=== PATIENT | female | born 1990 | race Caucasian/White ===

== ENCOUNTER → 2018-12-10 | Outpatient (CLI) | payer SELFPAY ==
[~2018-12-10] MED LIST: IOHEXOL 350 MG/ML 100 ML (OMNIPAQUE 350) VIAL IV ONE; METR500T PO; NITR100C PO; NS 100 ML (IVPB) BAG IV ONE; PREN-93 PO; RECEIVED CONTRAST (Hold Metformin) IV SCH
--- NOTE | 2018-12-10 14:35 | Diagnostic Imaging Report ---
PROCEDURE: CT abdomen and pelvis with contrast. TECHNIQUE: Multiple contiguous axial images were obtained through the abdomen and pelvis after administration of intravenous contrast. INDICATION: Low abdominal pain. COMPARISON: There are no prior studies available for comparison. FINDINGS: The images through the pelvis show that there is a well-circumscribed 4.1 x 4.6 cm area of low density in the right adnexa. Most likely, this is a cyst arising from the right ovary. If further evaluation of this finding is desired, then ultrasound would be recommended. There is no clear evidence for a cyst arising from the left ovary and the uterus itself is generally unremarkable. The urinary bladder is grossly unremarkable. The appendix was visualized and is not abnormally thickened. There is no distortion of the periappendiceal fat to suggest acute appendicitis. The liver is not enlarged. There is no focal mass involving the liver. However, there do appear to be several serpiginous vessels in the dome of the liver. This could represent developmental variant. The possibility that there is an underlying vascular abnormality in this region should still be considered. I would recommend that a Doppler examination of the liver be performed for further evaluation. The spleen, pancreas, adrenals, kidneys, gallbladder, aorta, and inferior vena cava show no sign of an acute abnormality. The stomach is not well distended and consequently difficult to assess. The lung bases are clear. The bone windows show no evidence for fracture or for destructive lesion. IMPRESSION: 1. The 4.1 x 4.6 cm rounded area of low density in the right adnexa is most likely a cyst arising from the right ovary. Ultrasound would be recommended to better characterize this finding. 2. The serpiginous vessels in the dome of the liver may be developmental variant. It would be less likely that there is an underlying vascular abnormality. Doppler ultrasound exam of the liver would be recommended for further study. 3. There is no acute abnormality of the the abdomen or pelvis noted, otherwise. Dictated by: Dictated on workstation # [id number]
== END ==
LOC: RAD 11:43
PROVIDERS: ATTEND Nurse Practitioner Family
DX: N83.8 Other noninflammatory disorders of ovary, fallopian tube and broad ligament (principal); N92.6 Irregular menstruation, unspecified
CPT/HCPCS: 74177

== ENCOUNTER 2021-10-24 13:02 | Outpatient (RCR) | payer SELFPAY ==
[2021-10-17 12:02] LABS: BASOPHILS % (AUTO) 1 % (0-10); EOSINOPHILS # (AUTO) 0.2 10^3/uL (0.0-0.3); EOSINOPHILS % (AUTO) 3 % (0-10); HEMATOCRIT 37 % (35-52); HEMOGLOBIN 10.5 g/dL (11.5-16.0); LYMPHOCYTES # (AUTO) 1.7 10^3/uL (1.0-4.0); LYMPHOCYTES % (AUTO) 32 % (12-44); MEAN CORPUSCULAR HEMOGLOBIN 20 pg (25-34); MEAN CORPUSCULAR HGB CONC 29 g/dL (32-36); MEAN CORPUSCULAR VOLUME 70 fL (80-99); MEAN PLATELET VOLUME 9.3 fL (9.0-12.2); MONOCYTES # (AUTO) 0.4 10^3/uL (0.0-1.0); MONOCYTES % (AUTO) 8 % (0-12); NEUTROPHILS # (AUTO) 2.9 10^3/uL (1.8-7.8); NEUTROPHILS % (AUTO) 56 % (42-75); PLATELET COUNT 410 10^3/uL (130-400); WHITE BLOOD COUNT 5.1 10^3/uL (4.3-11.0)
[2021-10-17 12:22] LABS: ALBUMIN 4.3 GM/DL (3.2-4.5); BILIRUBIN,TOTAL 0.3 MG/DL (0.1-1.0); CALCIUM 9.1 MG/DL (8.5-10.1); CREATININE SERUM 0.73 MG/DL (0.60-1.30); POTASSIUM 3.7 MMOL/L (3.6-5.0); TOTAL PROTEIN 7.7 GM/DL (6.4-8.2)
[~2021-10-24 13:02] MED LIST changes: +FERRIC CARBOXYMALTOSE (CANCER) 750 MG in NS (IVPB) CANCER CENTER 250 ML IV SCH; -IOHEXOL 350 MG/ML 100 ML (OMNIPAQUE 350) VIAL IV ONE; -NS 100 ML (IVPB) BAG IV ONE; -RECEIVED CONTRAST (Hold Metformin) IV SCH
== END 2021-11-10 | disposition home or self-care (01) ==
LOC: ONC 13:02
PROVIDERS: ATTEND Internal Medicine Hematology & Oncology
DX: D50.9 Iron deficiency anemia, unspecified (principal); D75.838 Other thrombocytosis; N92.1 Excessive and frequent menstruation with irregular cycle; Z87.19 Personal history of other diseases of the digestive system
CPT/HCPCS: 80053; 82728; 83540; 83550; 85025; 96365; G0463; 99214

== ENCOUNTER 2021-12-21 01:45 | Outpatient (RCR) | payer SELFPAY ==
[~2021-12-21 01:45] MED LIST changes: -FERRIC CARBOXYMALTOSE (CANCER) 750 MG in NS (IVPB) CANCER CENTER 250 ML IV SCH
[2021-12-21 14:00] LABS: BASOPHILS % (AUTO) 1 % (0-10); EOSINOPHILS # (AUTO) 0.2 10^3/uL (0.0-0.3); EOSINOPHILS % (AUTO) 3 % (0-10); HEMATOCRIT 44 % (35-52); HEMOGLOBIN 14.5 g/dL (11.5-16.0); LYMPHOCYTES # (AUTO) 1.9 10^3/uL (1.0-4.0); LYMPHOCYTES % (AUTO) 30 % (12-44); MEAN CORPUSCULAR HEMOGLOBIN 27 pg (25-34); MEAN CORPUSCULAR HGB CONC 33 g/dL (32-36); MEAN CORPUSCULAR VOLUME 82 fL (80-99); MEAN PLATELET VOLUME 9.6 fL (9.0-12.2); MONOCYTES # (AUTO) 0.5 10^3/uL (0.0-1.0); MONOCYTES % (AUTO) 8 % (0-12); NEUTROPHILS # (AUTO) 3.8 10^3/uL (1.8-7.8); NEUTROPHILS % (AUTO) 59 % (42-75); PLATELET COUNT 254 10^3/uL (130-400); WHITE BLOOD COUNT 6.4 10^3/uL (4.3-11.0)
[2021-12-21 14:23] LABS: ALBUMIN 4.2 GM/DL (3.2-4.5); BILIRUBIN,TOTAL 0.6 MG/DL (0.1-1.0); CALCIUM 9.3 MG/DL (8.5-10.1); CREATININE SERUM 0.66 MG/DL (0.60-1.30); POTASSIUM 3.9 MMOL/L (3.6-5.0); TOTAL PROTEIN 7.8 GM/DL (6.4-8.2)
== END 2022-01-08 | disposition home or self-care (01) ==
LOC: ONC 01:45
PROVIDERS: ATTEND Internal Medicine Hematology & Oncology
DX: D50.0 Iron deficiency anemia secondary to blood loss (chronic) (principal); D75.838 Other thrombocytosis; N92.1 Excessive and frequent menstruation with irregular cycle; Z87.19 Personal history of other diseases of the digestive system
CPT/HCPCS: 80053; 82728; 83540; 83550; 84443; 85025; G0463; 36415; 99213

== ENCOUNTER → 2022-04-26 | Outpatient (CLI) | payer OTHER ==
[~2022-04-26] MED LIST changes: +CATHETER FLUSH 10 ML SYR IVP PRN
--- NOTE | 2022-04-26 13:37 | Diagnostic Imaging Report ---
INDICATION: Epigastric pain. TECHNIQUE: Patient was administered 5.5 mCi technetium-99m Choletec, and imaging over the abdomen was performed. At 45 minutes, patient ingested Ensure, and a gallbladder ejection fraction was calculated. FINDINGS: There is homogeneous uptake of activity by the liver with prompt excretion of activity into the common duct and gallbladder. There is normal passage of activity into the small bowel. Gallbladder ejection fraction is normal at 64%. IMPRESSION: Normal HIDA scan and gallbladder ejection fraction. Dictated by: Dictated on workstation # [id number]
== END ==
LOC: CARD 10:00
PROVIDERS: ATTEND Nurse Practitioner Family
DX: R10.13 Epigastric pain (principal); R10.11 Right upper quadrant pain
CPT/HCPCS: 78227; A9537

== ENCOUNTER 2022-07-05 09:09 | Outpatient (RCR) | payer OTHER ==
[2022-07-02 13:38] LABS: BASOPHILS % (AUTO) 1 % (0-10); EOSINOPHILS # (AUTO) 0.1 10^3/uL (0.0-0.3); EOSINOPHILS % (AUTO) 2 % (0-10); HEMATOCRIT 41 % (35-52); LYMPHOCYTES # (AUTO) 1.4 10^3/uL (1.0-4.0); LYMPHOCYTES % (AUTO) 31 % (12-44); MEAN CORPUSCULAR HEMOGLOBIN 30 pg (25-34); MEAN CORPUSCULAR HGB CONC 34 g/dL (32-36); MEAN CORPUSCULAR VOLUME 87 fL (80-99); MEAN PLATELET VOLUME 9.5 fL (9.0-12.2); MONOCYTES # (AUTO) 0.3 10^3/uL (0.0-1.0); MONOCYTES % (AUTO) 7 % (0-12); NEUTROPHILS # (AUTO) 2.7 10^3/uL (1.8-7.8); NEUTROPHILS % (AUTO) 59 % (42-75); PLATELET COUNT 249 10^3/uL (130-400); WHITE BLOOD COUNT 4.6 10^3/uL (4.3-11.0)
[2022-07-02 14:00] LABS: ALBUMIN 4.1 GM/DL (3.2-4.5); BILIRUBIN,TOTAL 0.6 MG/DL (0.1-1.0); CREATININE SERUM 0.71 MG/DL (0.60-1.30); POTASSIUM 3.5 MMOL/L (3.6-5.0); TOTAL PROTEIN 6.8 GM/DL (6.4-8.2)
[~2022-07-05 09:09] MED LIST changes: -CATHETER FLUSH 10 ML SYR IVP PRN
== END 2022-07-11 | disposition home or self-care (01) ==
LOC: ONC 09:09
PROVIDERS: ATTEND Internal Medicine Hematology & Oncology
DX: D50.0 Iron deficiency anemia secondary to blood loss (chronic) (principal); D75.838 Other thrombocytosis; N92.1 Excessive and frequent menstruation with irregular cycle; Z87.19 Personal history of other diseases of the digestive system
CPT/HCPCS: 36415; 80053; 82728; 83540; 83550; 85025; 99213

== ENCOUNTER 2022-11-02 07:12 | Outpatient (CLI) | payer SELFPAY ==
[~2022-11-02] VITALS: Ht 157.5 cm; Wt 82.0 kg
[2022-11-06] MEDS ORDERED: IRON1TAB95 PO (15:36)
[2022-11-06] MEDS ORDERED: CHOL20003 PO (15:36)
== END 2022-11-07 09:01 | disposition home or self-care (01) ==
LOC: PREOP 07:12
PROVIDERS: ATTEND Obstetrics & Gynecology
DX: Z01.818 Encounter for other preprocedural examination (principal)

== ENCOUNTER 2023-03-25 21:11 | Emergency (ER) | payer SELFPAY ==
[~2023-03-25] VITALS: Ht 157.4 cm; Wt 84.1 kg
[~2023-03-25 21:11] MED LIST changes: +CHOL20003 PO; +IRON1TAB95 PO
--- NOTE | 2023-03-25 21:35 | ED Abdominal Pain ---
General Chief Complaint: Abdominal/GI Problems Stated Complaint: UPPER ABD PAIN Nursing Triage Note: Patient c/o epigastric pain x 6 wks with worsening yesterday. Patient c/o nausea, but denies any vomiting or diarrhea. Patient states she started hurting in her RUQ today. Patient denies any chest pain or Hx. of pancreatitis. Source of Information: Patient Exam Limitations: No Limitations (LAURENT CARCAMO) History of Present Illness Date Seen by Provider: March 25, 2023 Time Seen by Provider: 21:34 Initial Comments Patient is a 32-year-old female who presents ED with epigastric pain. She states pain started yesterday morning. Described as a dull constant pain. Pain radiates to the right upper quadrant. Pain appears to be worse after she eats. Feels more of a fullness sensation in her upper abdomen. She states she feels extremely nauseous. No vomiting or diarrhea. No history of previous abdominal surgery. History of similar pain in the past. Denies history of gastritis, GERD or peptic ulcer disease. Denies excessive alcohol use. Previous use of NSAIDs in the past. Denies chest pain, cough, shortness of breath. No recent travels or surgeries. Normal urination. Not concern for . No current vaginal bleeding, dysuria, hematuria. Denies taking medication (LAURENT CARCAMO) Allergies and Home Medications Allergies Coded Allergies: No Known Drug Allergies (Unverified , 11/06/22) Patient Home Medication List Home Medication List Reviewed: Yes (LINNEA STARKEY MD) Cephalexin (Cephalexin) 500 Mg Tablet, 500 MG PO TID Prescribed by: LINNEA CADE on 03/26/23 0205 Cholecalciferol (Vitamin D3) (Vitamin D3) 50 Mcg (2000 Unit) Capsule, 50 MCG PO UD, (Reported) Entered as Reported by: CECILY WILLSON on 11/06/22 1536 Iron,Carbonyl/Vit C/Vit B12/FA (Iron 100 Plus Tablet) 100 Mg-250 Mg-25 Mcg-1 Mg Tablet, 1 EACH PO, (Reported) Entered as Reported by: CECILY WILLSON on 11/06/22 1536 Ondansetron (Ondansetron Odt) 4 Mg Tab.rapdis, 4 MG SL Q4H PRN for NAUSEA/VOMITING Prescribed by: LINNEA CADE on 03/26/23158 Pantoprazole Sodium (Protonix) 40 Mg Tablet.dr, 40 MG PO DAILY Prescribed by: LINNEA CADE on 03/26/23158 Promethazine HCl (Promethazine Tablet) 25 Mg Tablet, 25 MG PO Q8H PRN for NAUSEA/VOMITING-2ND LINE Prescribed by: LINNEA CADE on 03/26/23158 Review of Systems Review of Systems Constitutional: No chills, No diaphoresis, No fever, No malaise, No weakness EENTM: No Eye Pain Respiratory: Denies Cough Cardiovascular: Denies Chest Pain Gastrointestinal: Abdominal Pain; Denies Diarrhea; Nausea; Denies Vomiting Genitourinary: Denies Burning, Denies Discharge, Denies Drainage, Denies Frequency Musculoskeletal: No back pain Skin: No change in color, No change in hair/nails (LAURENT CARCAMO) All Other Systems Reviewed Negative Unless Noted: Yes (LAURENT CARCAMO) Past Pqbofye-Hlghgp-Ynpjno Hx Seasonal Allergies Seasonal Allergies: No (LAURENT CARCAMO) Past Medical History Surgeries: Yes (BREAST REDUCTION) Tonsillectomy Respiratory: No Cardiac: No Neurological: No Last Menstrual Period: Feb 18, 2023 Female Reproductive Disorders: Menstrual Problems, Endometriosis Genitourinary: No Gastrointestinal: No Musculoskeletal: No Endocrine: No HEENT: Yes Cancer: No Psychosocial: Yes Anxiety Integumentary: No Blood Disorders: Yes (ANEMIA) (LAURENT CARCAMO) Physical Exam Vital Signs Vital Signs - First Documented 03/25/23 21:13 Temp 36.2 Pulse 73 Resp 16 B/P (MAP) 149/97 (114) Pulse Ox 98 O2 Delivery Room Air (LINNEA STARKEY MD) Vital Signs Capillary Refill : (LAURENT CARCAMO) Height/Weight/BMI Height: '" Weight: lbs. oz. kg; 33.00 BMI Method:Stated General Appearance: WD/WN, no apparent distress HEENT: PERRL/EOMI, normal ENT inspection, TMs normal, pharynx normal Neck: non-tender, full range of motion, supple Respiratory: chest non-tender, lungs clear, normal breath sounds, no respiratory distress, no accessory muscle use Cardiovascular: regular rate, rhythm, no edema, no gallop, no JVD Gastrointestinal: normal bowel sounds, soft, no organomegaly, no pulsatile mass, tenderness (Epigastric tenderness, right upper quadrant tenderness. Normal bowel sounds throughout. 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 as tested, no motor/sensory deficits, a lert, normal mood/affect, oriented x 3 Skin: normal color (LAURENT CARCAMO) Progress/Results/Core Measures Results/Orders Lab Results Laboratory Tests Test 03/25/23 00:31 03/25/23 21:35 03/26/23 02:16 Range/Units Urine Color YELLOW Urine Clarity SL CLOUDY Urine pH 6.0 5-9 Urine Specific [place] 1.025 H 1.016-1.022 Urine Protein NEGATIVE NEGATIVE Urine Glucose (UA) NEGATIVE NEGATIVE Urine Ketones NEGATIVE NEGATIVE Urine Nitrite NEGATIVE NEGATIVE Urine Bilirubin NEGATIVE NEGATIVE Urine Urobilinogen 0.2 < = 1.0 MG/DL Urine Leukocyte Esterase 1+ H NEGATIVE Urine RBC (Auto) NEGATIVE NEGATIVE Urine RBC NONE /HPF Urine WBC 5-10 H /HPF Urine Squamous Epithelial Cells 2-5 /HPF Urine Crystals NONE /LPF Urine Bacteria FEW H /HPF Urine Casts NONE /LPF Urine Mucus SMALL H /LPF Urine Culture Indicated YES White Blood Count 6.5 4.3-11.0 10^3/uL Red Blood Count 5.02 3.80-5.11 10^6/uL Hemoglobin 12.8 11.5-16.0 g/dL Hematocrit 40 35-52 % Mean Corpuscular Volume 80 80-99 fL Mean Corpuscular Hemoglobin 26 25-34 pg Mean Corpuscular Hemoglobin Concent 32 32-36 g/dL Red Cell Distribution Width 13.0 10.0-14.5 % Platelet Count 307 130-400 10^3/uL Mean Platelet Volume 9.4 9.0-12.2 fL Immature Granulocyte % (Auto) 0 % Neutrophils (%) (Auto) 57 42-75 % Lymphocytes (%) (Auto) 31 12-44 % Monocytes (%) (Auto) 9 0-12 % Eosinophils (%) (Auto) 3 0-10 % Basophils (%) (Auto) 1 0-10 % Neutrophils # (Auto) 3.6 1.8-7.8 10^3/uL Lymphocytes # (Auto) 2.0 1.0-4.0 10^3/uL Monocytes # (Auto) 0.6 0.0-1.0 10^3/uL Eosinophils # (Auto) 0.2 0.0-0.3 10^3/uL Basophils # (Auto) 0.0 0.0-0.1 10^3/uL Immature Granulocyte # (Auto) 0.0 0.0-0.1 10^3/uL Sodium Level 140 135-145 MMOL/L Potassium Level 3.5 L 3.6-5.0 MMOL/L Chloride Level 106 98-107 MMOL/L Carbon Dioxide Level 24 21-32 MMOL/L Anion Gap 10 5-14 MMOL/L Blood Urea Nitrogen 10 7-18 MG/DL Creatinine 0.71 0.60-1.30 MG/DL Estimat Glomerular Filtration Rate 117 BUN/Creatinine Ratio 14 Glucose Level 102 70-105 MG/DL Calcium Level 8.9 8.5-10.1 MG/DL Corrected Calcium 8.8 8.5-10.1 MG/DL Total Bilirubin 0.3 0.1-1.0 MG/DL Aspartate Amino Transf (AST/SGOT) 49 H 5-34 U/L Alanine Aminotransferase (ALT/SGPT) 56 H 0-55 U/L Alkaline Phosphatase 94 40-136 U/L Total Protein 7.3 6.4-8.2 GM/DL Albumin 4.1 3.2-4.5 GM/DL Lipase 45 8-78 U/L Serum Test, Qualitative NEGATIVE NEGATIVE (LINNEA STARKEY MD) My Orders Orders - LINNEA STARKEY MD Gallbladder [id number] (03/25/23 22:47) Ondansetron Injection (Zofran Injectio (03/26/23 00:45) Lidocaine 2% Viscous 15 Ml (Xylocaine Vi (03/26/23 00:45) Antacid Suspension (Mylanta Suspension (03/26/23 00:45) Promethazine Injection (Phenergan Injec (03/26/23 02:00) Scopolamine Patch (Transderm-Scop Patch) (03/26/23 02:00) Helicobacter Pylori Opal Igg (03/26/23 01:50) (LINNEA STARKEY MD) Medications Given in ED Current Medications Medications Dose Ordered Sig/Ash Route Start Time Stop Time Status Last Admin Dose Admin Al Hydrox/Mg Hydrox/Simethicone 30 ml ONCE ONCE PO 03/26/23 00:45 03/26/23 00:46 DC 03/26/23 00:46 30 ML Lidocaine HCl 15 ml ONCE ONCE PO 03/26/23 00:45 03/26/23 00:46 DC 03/26/23 00:46 15 ML Morphine Sulfate 4 mg ONCE ONCE IVP 03/25/23 23:00 03/25/23 23:01 DC 03/25/23 23:48 4 MG Ondansetron HCl 4 mg ONCE ONCE IVP 03/25/23 21:45 03/25/23 21:46 DC 03/25/23 21:48 4 MG Ondansetron HCl 4 mg ONCE ONCE IVP 03/26/23 00:45 03/26/23 00:46 DC 03/26/23 00:46 4 MG Pantoprazole 40 mg ONCE ONCE IV 03/25/23 21:45 03/25/23 21:46 DC 03/25/23 21:51 40 MG Promethazine HCl 25 mg ONCE ONCE IVP 03/26/23 02:00 03/26/23 02:01 DC 03/26/23 02:07 25 MG Scopolamine 1.5 mg ONCE ONCE TD 03/26/23 02:00 03/26/23 02:01 DC 03/26/23 02:07 1.5 MG (LINNEA STARKEY MD) Vital Signs/I&O 03/25/23 03/26/23 21:13 02:26 Temp 36.2 Pulse 73 74 Resp 16 20 B/P (MAP) 149/97 (114) 146/94 Pulse Ox 98 98 O2 Delivery Room Air Room Air (LINNEA STARKEY MD) Blood Pressure Mean: 114 Progress Progress Note : Progress Note Care of this patient was assumed from VALDEMAR Duckworth at conclusion of his shift. Patient had received Zofran, Protonix, and morphine. She still compl ained of significant nausea. A second dose of Zofran was administered. She was examined again and found to have tenderness in the epigastrium and right upper quadrant. Ultrasound of the gallbladder was obtained and revealed no acute abnormalities. This was discussed with the copier repair technician and the [employer] report was reviewed. Chart reviewed and she was found to have a negative hepatobiliary scan of last year. Therefore, gallbladder pathology was determined to be very unlikely. Patient describes epigastric pain immediately after eating. GI cocktail was provided which resulted in significant relief of pain. She still complained of further nausea. Phenergan and a scopolamine patch were then provided. See discharge instructions for further discussion. A small amount of WBC and bacteria were noted on urinalysis. Patient is additionally being treated for possible UTI. (LINNEA STARKEY MD) Diagnostic Imaging Diagonstic Imaging: Ultrasound Plain Films/CT/US/NM/MRI: abdomen Comments Gallbladder ultrasound was obtained and discussed with copier repair technician. [employer] report was reviewed. No acute gallbladder pathology was identified. Mildly fatty liver was noted. There was no bile duct dilatation. (LINNEA STARKEY MD) Departure Communication (PCP) Reviewed previous ER visits, H&P, lab testing patient presents ED with epigastric abdominal pain with radiation to right upper quadrant. History of similar symptoms. Pain started yesterday and constant. She states she feels discomfort after eating. Patient denies any chest pain, cough or shortness of breath. No urinary symptoms. She initially refused anything for pain but then started having pain was given a dose of morphine. Differential diagnosis of gastritis, cholecystitis, cholelithiasis, choledocholithiasis, pancreatitis. General lab work was started. Patient was discussed with Dr. Starkey who took over care at 2300. Ultrasound was ordered. May benefit with a GI cocktail. H. pylori would be of differential. (LAURENT CARCAMO) Impression Primary Impression: Epigastric pain Additional Impressions: Nausea & vomiting Qualified Codes: R11.2 - Nausea with vomiting, unspecified Urinary tract infection Qualified Codes: N39.0 - Urinary tract infection, site not specified Disposition: HOME, SELF-CARE Condition: Improved Departure-Patient Inst. Decision time for Depature: 01:57 (LINNEA STARKEY MD) Referrals: ERICK NGO APRN (PCP/Family) Primary Care Physician Patient Instructions: Abdominal Pain, Adult ED, Acid Reflux and Gastroesophageal Reflux Disease in Adults, Ulcer and Gastritis Diet Add. Discharge Instructions: Start Protonix (pantoprazole) antacid medication as prescribed. If this is cost prohibitive, you may substitute omeprazole 20 mg twice daily purchased [id number]. Follow-up with your primary care provider in 1 to 2 weeks. Review results of the H. pylori test ordered in the ER at that time. This is a send out test and will take several days to result. If pain is not improving, you may need to schedule an endoscopy for further evaluation. Avoid the following: Eating large meals, eating close to bedtime, caffeine, carbonation, chocolate, citrus fruits and juices, tomato products, mints, alcohol, tobacco, spicy foods, NSAID medications such as ibuprofen or naproxen, or anything else you know irritate your stomach. For pain you may take Tylenol (acetaminophen) up to 1000 mg every 6 hours as needed. You may also try taking Tums or a generic equivalent per package in structions for more immediate treatment of stomach pain. Use Zofran (ondansetron) as your primary nausea medication. Add Phenergan (promethazine) as prescribed for additional treatment of nausea if needed. There was suggestion of urinary tract infection on your urinalysis. Complete antibiotics as prescribed. Contact your primary care provider on or Saturday to review urine culture results to ensure your antibiotic is effective for the type of bacteria grown. Drink plenty of noncarbonated clear liquids to stay well-hydrated and to flush out your urinary tract. Return to the emergency room if you have worsening symptoms despite following these instructions. All discharge instructions reviewed with patient and/or family. Voiced understanding. Scripts Cephalexin (Cephalexin) 500 Mg Tablet 500 MG PO TID, #21 TAB Prov: LINNEA STARKEY MD 03/26/23 Promethazine HCl (Promethazine Tablet) 25 Mg Tablet 25 MG PO Q8H PRN for NAUSEA/VOMITING-2ND LINE, #10 TAB Prov: LINNEA STARKEY MD 03/26/23 Ondansetron (Ondansetron Odt) 4 Mg Tab.rapdis 4 MG SL Q4H PRN for NAUSEA/VOMITING, #10 TAB Prov: LINNEA STARKEY MD 03/26/23 Pantoprazole Sodium (Protonix) 40 Mg Tablet. 40 MG PO DAILY, #30 TAB Prov: LINNEA STARKEY MD 03/26/23 Copy Copies To 1: [facility]/LAURENT EP[facility] March 25, 2023 21:35 LINNEA STARKEY MD March 26, 2023 02:02
[2023-03-25] MEDS ORDERED: ONDANSETRON 4 MG/2 ML (SDV) Z0FRAN IVP ONE (21:45)
[2023-03-25] MEDS ORDERED: PANTOPRAZOLE 40 MG (PROTONIX) VIAL IV ONE (21:45)
[2023-03-25 21:47] LABS: BASOPHILS % (AUTO) 1 % (0-10); EOSINOPHILS # (AUTO) 0.2 10^3/uL (0.0-0.3); EOSINOPHILS % (AUTO) 3 % (0-10); HEMATOCRIT 40 % (35-52); HEMOGLOBIN 12.8 g/dL (11.5-16.0); LYMPHOCYTES % (AUTO) 31 % (12-44); MEAN CORPUSCULAR HEMOGLOBIN 26 pg (25-34); MEAN CORPUSCULAR HGB CONC 32 g/dL (32-36); MEAN CORPUSCULAR VOLUME 80 fL (80-99); MEAN PLATELET VOLUME 9.4 fL (9.0-12.2); MONOCYTES # (AUTO) 0.6 10^3/uL (0.0-1.0); MONOCYTES % (AUTO) 9 % (0-12); NEUTROPHILS # (AUTO) 3.6 10^3/uL (1.8-7.8); NEUTROPHILS % (AUTO) 57 % (42-75); PLATELET COUNT 307 10^3/uL (130-400); WHITE BLOOD COUNT 6.5 10^3/uL (4.3-11.0)
[2023-03-25 22:22] LABS: ALBUMIN 4.1 GM/DL (3.2-4.5); BILIRUBIN,TOTAL 0.3 MG/DL (0.1-1.0); CALCIUM 8.9 MG/DL (8.5-10.1); CREATININE SERUM 0.71 MG/DL (0.60-1.30); POTASSIUM 3.5 MMOL/L (3.6-5.0); TOTAL PROTEIN 7.3 GM/DL (6.4-8.2)
[2023-03-25] MEDS ORDERED: morphine INJ 10 MG/ML 1ML (SYR OR VIAL) IVP ONE (23:00)
[2023-03-26] MEDS ORDERED: ONDANSETRON 4 MG/2 ML (SDV) Z0FRAN IVP ONE (00:45)
[2023-03-26] MEDS ORDERED: LIDOCAINE 2% VISCOUS 15 ML UDC PO ONE (00:45)
[2023-03-26] MEDS ORDERED: ANTACID SUSP 30 ML UDC (MYLANTA) PO ONE (00:45)
[2023-03-26 01:04] LABS: BILIRUBIN,URINE NEGATIVE (NEGATIVE); CLARITY,URINE SL CLOUDY; COLOR,URINE YELLOW; GLUCOSE, URINE (UA) NEGATIVE (NEGATIVE); KETONES,URINE NEGATIVE (NEGATIVE); LEUKOCYTE ESTERASE ,URINE 1+ (NEGATIVE); NITRITE,URINE NEGATIVE (NEGATIVE); PROTEIN,URINE NEGATIVE (NEGATIVE)
[2023-03-26 01:30] LABS: BACTERIA,URINE FEW /HPF
[2023-03-26] MEDS ORDERED: PROM25TA14 PO (01:59)
[2023-03-26] MEDS ORDERED: PANT40TA2 PO (01:59)
[2023-03-26] MEDS ORDERED: ONDA4TAB11 SL (01:59)
[2023-03-26] MEDS ORDERED: PROMETHAZINE INJ 25 MG/ML (PHENERGAN) AMP IVP ONE (02:00)
[2023-03-26] MEDS ORDERED: SCOPOLAMINE 1.5 MG (TRANSDERM-SCOP) PATCH TD ONE (02:00)
[2023-03-26] MEDS ORDERED: CEPH500T PO (02:05)
[2023-03-26 02:26] VITALS: BP 146/94
--- NOTE | 2023-03-26 07:14 | Diagnostic Imaging Report ---
PROCEDURE: US Gallbladder. TECHNIQUE: Multiple real-time grayscale images were obtained over the right upper quadrant in various projections. INDICATION: Right quadrant pain and nausea EXAMINATION: Ultrasound gallbladder 03/25/2023 FINDINGS: Examination overall limited by patient body habitus and bowel gas. The visualized liver demonstrates an area of likely focal fatty sparing near the gallbladder fossa. Liver overall 16.8 cm in size. No intrahepatic biliary dilatation. Gallbladder wall does not appear thickened. No stones or sludge appreciated. No pericholecystic fluid. Common duct however is at the upper limits of normal measuring 0.6 cm. Visualized portions of the pancreas unremarkable. Visualized aorta and IVC unremarkable. Right kidney 11 cm in length. No hydronephrosis. There is no ascites. IMPRESSION: 1. Hypoechoic area adjacent to the gallbladder within the liver presumably focal fatty sparing. This could be better characterized non-emergently with dedicated CT imaging of the liver. 2. Common duct at the upper limits of normal which could be of no significance. However if there is persistent pain or concern for an obstructive process MRCP could provide further characterization as clinically indicated. Dictated by: Dictated on workstation # [id number]
== END 2023-03-26 02:31 | disposition home or self-care (01) ==
LOC: EDUNIT# 21:11 → ER 21:13
DX: R10.13 Epigastric pain (principal); R11.2 Nausea with vomiting, unspecified; N39.0 Urinary tract infection, site not specified; K76.0 Fatty (change of) liver, not elsewhere classified; Z28.310 Unvaccinated for COVID-19
CPT/HCPCS: 36415; 76705; 80053; 81000; 83690; 84703; 85025; 86677; 87088

== ENCOUNTER 2023-04-02 05:34 | Outpatient (CLI) | payer SELFPAY ==
[~2023-04-02] VITALS: Ht 157.5 cm; Wt 85.4 kg
[~2023-04-02 05:34] MED LIST changes: +CEPH500T PO; +ONDA4TAB11 SL; +PANT40TA2 PO; +PROM25TA14 PO
== END 2023-04-03 15:36 | disposition home or self-care (01) ==
LOC: PREOP 05:34
PROVIDERS: ATTEND Obstetrics & Gynecology
DX: Z01.818 Encounter for other preprocedural examination (principal)

== ENCOUNTER 2023-04-03 14:20 | Outpatient (RCR) | payer OTHER ==
[2023-04-03 14:47] LABS: BASOPHILS % (AUTO) 1 % (0-10); EOSINOPHILS # (AUTO) 0.1 10^3/uL (0.0-0.3); EOSINOPHILS % (AUTO) 2 % (0-10); HEMATOCRIT 40 % (35-52); LYMPHOCYTES # (AUTO) 1.6 10^3/uL (1.0-4.0); LYMPHOCYTES % (AUTO) 30 % (12-44); MEAN CORPUSCULAR HEMOGLOBIN 26 pg (25-34); MEAN CORPUSCULAR HGB CONC 33 g/dL (32-36); MEAN CORPUSCULAR VOLUME 79 fL (80-99); MEAN PLATELET VOLUME 9.5 fL (9.0-12.2); MONOCYTES # (AUTO) 0.5 10^3/uL (0.0-1.0); MONOCYTES % (AUTO) 9 % (0-12); NEUTROPHILS # (AUTO) 3.2 10^3/uL (1.8-7.8); NEUTROPHILS % (AUTO) 59 % (42-75); PLATELET COUNT 315 10^3/uL (130-400); WHITE BLOOD COUNT 5.4 10^3/uL (4.3-11.0)
[2023-04-03 15:12] LABS: ALBUMIN 4.2 GM/DL (3.2-4.5); BILIRUBIN,TOTAL 0.6 MG/DL (0.1-1.0); CREATININE SERUM 0.72 MG/DL (0.60-1.30); POTASSIUM 3.6 MMOL/L (3.6-5.0); TOTAL PROTEIN 7.5 GM/DL (6.4-8.2)
[2023-04-09] MEDS ORDERED: DOCU100C37 PO (09:56)
[2023-04-09] MEDS ORDERED: HYDR-34 PO (09:56)
[2023-04-09] MEDS ORDERED: SIME80TA16 PO (09:56)
[2023-04-09] MEDS ORDERED: IBUP-1773 PO (09:56)
== END 2023-04-10 | disposition home or self-care (01) ==
LOC: ONC 14:20
PROVIDERS: ATTEND Internal Medicine Hematology & Oncology
DX: D50.0 Iron deficiency anemia secondary to blood loss (chronic) (principal); N92.1 Excessive and frequent menstruation with irregular cycle
CPT/HCPCS: 80053; 82728; 83540; 83550; 85025

== ENCOUNTER 2023-04-09 08:37 | Day surgery (SDC) | payer OTHER ==
[~2023-04-09] VITALS: Ht 157.5 cm; Wt 85.4 kg
[2023-04-09] VITALS (12 sets, daily range): BP systolic 89–134; BP diastolic 51–106
[2023-04-09] MEDS ORDERED: BUPIVACAINE 0.25% 30 ML (SENSORCAINE) VIAL ONE (08:57)
[2023-04-09] MEDS ORDERED: ceFAZolin INJECTION 2,000 MG in NS (IVPB) 50 ML IV ONE (09:00)
[2023-04-09] MEDS ORDERED: metroNIDAZOLE 500MG/100ML IVPB 100 ML IV ONE (09:00)
[2023-04-09 09:17] LABS: BASOPHILS # (AUTO) 0.1 10^3/uL (0.0-0.1); BASOPHILS % (AUTO) 1 % (0-10); EOSINOPHILS # (AUTO) 0.2 10^3/uL (0.0-0.3); EOSINOPHILS % (AUTO) 4 % (0-10); HEMATOCRIT 42 % (35-52); HEMOGLOBIN 13.5 g/dL (11.5-16.0); LYMPHOCYTES # (AUTO) 1.9 10^3/uL (1.0-4.0); LYMPHOCYTES % (AUTO) 31 % (12-44); MEAN CORPUSCULAR HEMOGLOBIN 26 pg (25-34); MEAN CORPUSCULAR HGB CONC 32 g/dL (32-36); MEAN CORPUSCULAR VOLUME 79 fL (80-99); MEAN PLATELET VOLUME 9.4 fL (9.0-12.2); MONOCYTES # (AUTO) 0.6 10^3/uL (0.0-1.0); MONOCYTES % (AUTO) 9 % (0-12); NEUTROPHILS # (AUTO) 3.4 10^3/uL (1.8-7.8); NEUTROPHILS % (AUTO) 55 % (42-75); PLATELET COUNT 328 10^3/uL (130-400); WHITE BLOOD COUNT 6.2 10^3/uL (4.3-11.0)
[2023-04-09] MEDS ORDERED: LACTATED RINGERS 1,000 ML IV SCH ×2 (09:30→10:00)
[2023-04-09] MEDS ORDERED: MIDAZOLAM 2 MG/2 ML (VERSED) VIAL IVP ONE (09:30)
--- NOTE | 2023-04-09 09:52 | Progress Note-Pre Operative ---
Pre-Operative Progress Note Date of Available H&P: April 09, 2023 Date H&P Reviewed: April 09, 2023 Time H&P Reviewed: 09:45 History & Physical: H&P Reviewed, Patient Examed, No changes noted Pre-Operative Diagnosis: CPP, Dysmenorrhea, Menorrhagia TRENA BRYAN DO April 09, 2023 09:52
--- NOTE | 2023-04-09 09:55 | Discharge Inst-Women's Service ---
Discharge Inst-Women's Serv Depart Medication/Instructions New, Converted or Re-Newed RX: Transmitted to Pharmacy Problems Reviewed?: Yes Consults/Follow Up Additional Follow Up: Yes Orders/Referrals Dr. Santamaria in 7-10 days and in 8 weeks Activity Activity: Activity as Tolerated Driving Instructions: No Driving for 1 Week NO SMOKING: NO SMOKING Nothing Inside Vagina: No Douching, No Blende, No Tampons Diet Discharge Diet: No Restrictions Symptoms to Report to : Bleeding Excessive, Pain Increased, Fever Over 101 Degrees F, Vaginal Bleeding Increase, Questions/Concerns For Any Problems or Questions: Contact Your Physician Skin/Wound Care Infection Signs and Symptoms: Increased Redness, Foul Odor of Wound, Increased Drainage, Skin Itchy or Has a Rash, Increased Swelling, Temperature Above 101 F Operative Area Clean and Dry: Keep Incision Clean/Dry Stitches/Cindy/Dermabond: Dermabond, Care of Stitches Bathing Instructions: TRENA Doe DO April 09, 2023 09:55
[2023-04-09] MEDS ORDERED: SIME80TA16 PO (09:56)
[2023-04-09] MEDS ORDERED: HYDR-34 PO (09:56)
[2023-04-09] MEDS ORDERED: DOCU100C37 PO (09:56)
[2023-04-09] MEDS ORDERED: IBUP-1773 PO (09:56)
[2023-04-09] MEDS ORDERED: DOCUSATE SODIUM 100 MG (COLACE) CAP PO PRN (10:00)
[2023-04-09] MEDS ORDERED: ZOLPIDEM 5 MG (AMBIEN) TAB PO PRN (10:00)
[2023-04-09] MEDS ORDERED: ANTACID SUSP 30 ML UDC (MYLANTA) PO PRN (10:00)
[2023-04-09] MEDS ORDERED: HYDROmorphone 2 MG/ML VIAL (DILAUDID) IV PRN (10:00)
[2023-04-09] MEDS ORDERED: BENZOCAINE LOZENGES 1 EACH LOZENGE MM PRN (10:00)
[2023-04-09] MEDS ORDERED: fentaNYL INJ 100 MCG/2 ML AMP ONE ×2 (10:03→11:49)
[2023-04-09] MEDS ORDERED: ROCURONIUM 50 MG/5 ML (ZEMURON) VIAL IV ONE (10:03)
[2023-04-09] MEDS ORDERED: proPOfol 200 MG/20 ML (DIPRIVAN) VIAL IV ONE (10:03)
[2023-04-09] MEDS ORDERED: LIDOCAINE PF 2% 5 ML (XYLOCAINE) VIAL ONE (10:03)
[2023-04-09] MEDS: LACTATED RINGERS 1,000 ML IV PRN ×2 (10:04→11:06)
[2023-04-09] MEDS ORDERED: BUPIVACAINE 0.25% 30 ML (SENSORCAINE) VIAL INJ ONE (11:05)
[2023-04-09] MEDS ORDERED: ONDANSETRON 4 MG/2 ML (SDV) Z0FRAN ONE (11:28)
[2023-04-09] MEDS ORDERED: NEOSTIGMINE (BLOXIVERZ ) 1 MG/1ML 10 ML VIAL ONE (11:28)
[2023-04-09] MEDS ORDERED: SEVOFLURANE (ULTANE) 15 ML INHAL SOLN ONE (11:28)
[2023-04-09] MEDS ORDERED: GLYCOPYRROLATE 0.2 MG/ML (ROBINUL) 2 ML VIAL ONE (11:28)
--- NOTE | 2023-04-09 11:50 | Anesthesia-General Post-Op ---
General Patient Condition Mental Status/LOC: Same as Preop Cardiovascular: Satisfactory Nausea/Vomiting: Absent Respiratory: Satisfactory Pain: Controlled Complications: Absent Post Op Complications Complications None Follow Up Care/Instructions Patient Instructions None needed. Anesthesia/Patient Condition Patient Condition Patient is doing well, no complaints, stable vital signs, no apparent adverse anesthesia problems. No complications reported per nursing. JUVENCIO HALE CRNA April 09, 2023 11:50
[2023-04-09] MEDS: KETOROLAC 30 MG/ML VIAL IVP PRN ×2 (11:53→18:39)
[2023-04-09] MEDS ORDERED: HYDROmorphone 2 MG/ML VIAL (DILAUDID) IV ONE (12:00)
[2023-04-09] MEDS ORDERED: ONDANSETRON 4 MG/2 ML (SDV) Z0FRAN IVP PRN (12:00)
[2023-04-09] MEDS ORDERED: fentaNYL INJ 100 MCG/2 ML AMP IVP ONE (12:00)
[2023-04-09] MEDS: SIMETHICONE 80 MG (MYLICON) CHEW PO PRN ×2 (15:14→20:45)
[2023-04-09] MEDS: ONDANSETRON 4 MG/2 ML (SDV) Z0FRAN IV PRN ×2 (15:15→21:35)
[2023-04-09] MEDS: HYDROcodone/APAP 7.5 MG/325 MG (LORTAB, LORCET PLUS) TABLET PO PRN (15:15)
[2023-04-09] MEDS ORDERED: ALPRAZolam 0.25 MG (XANAX) TAB PO PRN (17:30)
--- NOTE | 2023-04-09 17:36 | OPERATIVE REPORT ---
DATE OF SERVICE: 04/09/2023 PREOPERATIVE DIAGNOSES: 1. A 32-year-old female with chronic pelvic pain. 2. Dysmenorrhea. 3. Dyspareunia. POSTOPERATIVE DIAGNOSES: 1. A 32-year-old female with chronic pelvic pain. 2. Dysmenorrhea. 3. Dyspareunia. PROCEDURE: Robotic-assisted total laparoscopic hysterectomy with bilateral salpingectomy. SURGEON: Nestor Santamaria DO OBSTETRICS NURSE: Gracie Monteiro DNP was necessary for manipulation and retraction throughout the procedure. ANESTHESIA: General endotracheal. ESTIMATED BLOOD LOSS: Minimal. URINE OUTPUT: 350 mL clear at the end of the procedure. FLUIDS: 2 liters of lactated Ringer's solution. FINDINGS: A bulky hyperemic-appearing uterus, otherwise grossly normal-appearing serosal surface. Grossly normal appearing fallopian tubes and ovaries. SPECIMEN SENT: Uterus, bilateral fallopian tubes. INDICATIONS FOR PROCEDURE: This 32-year-old female was a patient who had sought care in my office earlier this year, she had a planned procedure with Dr. Umaña. This was canceled due to illness right prior to the surgery and then Dr. Umaña had left. I picked up her care from there and according to his documentation and multiple attempts at managing her pain and bleeding in the past, she had finally agreed to proceed with hysterectomy. I discussed with the patient in detail all of the conservative options that have been explored. She was still agreeable to proceed. Risks of the procedure were reviewed with the patient in detail including risk of bleeding, infection, damage to surrounding structures including but not limited to bowel, bladder, ureter, kidneys, possible need for reoperation, postoperative complications that may occur, recovery timeframe, risk from anesthesia and even . After everything was discussed with the patient in detail, a consent was obtained, the patient was taken to the operating room. OPERATIVE REPORT IN DETAIL: Once in the operating room, anesthesia was administered and found to be adequate, was placed in dorsal lithotomy position, prepped and draped in normal sterile fashion. Timeout was performed. Anesthesia tested. I then placed a Roberts catheter using sterile technique. A weighted speculum inserted to the patient's vagina. Ring retractor was utilized. Cervix which an 0 Vicryl suture was then placed on the anterior lip of the cervix and used my retraction point. I then selected an 8 [place] uterine manipulator tip and a 3.5 cm colpotomy ring. The manipulator tip was advanced easily into the uterus where the balloon was deployed and the colpotomy ring was advanced around the vaginal fornix. I then removed all instruments from the patient's vagina, performed change of gloves. I turned my attention to the abdomen where subcostally at the midclavicular line on the left, I introduced the Veress needle through the skin. Intraperitoneal placement was confirmed using saline drop test. An opening pressure of 5 mmHg was noted. I proceeded with CO2 insufflation to max pressure of 15 mmHg, at which point I make an 8 mm incision infraumbilically and introduced an 8 mm blunt da Melissa camera trocar through the incision until trocar placement was confirmed using da Melissa laparoscope. There was no evidence of damage from entry site. A brief scan of the upper abdominal anatomy appears to be grossly normal. I then had the patient placed in steep Trendelenburg able to visualize all my pelvic anatomy as defined in my findings above. I placed 2 lateral trocars using both 8 mm trocars approximately 8 cm lateral to my infraumbilical trocar. Once both of these are in place, I bring in the da Melissa robot and docked in appropriate fashion, placing the vessel sealer on left hand and monopolar bev in the right hand. I performed the following dissection bilaterally starting at the uteroovarian ligament. I sealed and transected this using the vessel sealer. I then created a window in the mesosalpinx and take the vessel sealer down the mesosalpinx amputating the fallopian tube from its surrounding blood supply. I then grasped the round ligament, which I sealed and transected using the vessel sealer. This allows me to grasp the entire broad ligament, which I sealed and transected using the vessel sealer at least this down to the level of the lower uterine segment, at which point I the anterior and posterior lips broad ligament. Anterior leaflet dissection was taken around the anterior vaginal fornix. The posterior leaf was taken around the posterior vaginal fornix. This allows me to skeletonize the uterine vessels laterally, which I sealed and transected using the vessel sealer. There is no evidence of damage laterally of the broad ligament, plane. I then created a colpotomy at 12 o'clock position using monopolar bev and took this circumferentially around the vaginal fornix amputating the cervix away from the vagina. The entire specimen was then removed through the vagina. I then closed the vaginal cuff using 2-0 V-Loc in a running fashion, after which there was not enough female dissection planes. I then undocked da Melissa robot and proceeded with remainder of the case laparoscopically. I copiously irrigated the pelvis using normal saline. Once again, there was no active bleeding noted from any of my dissection planes. I placed Surgiflo hemostatic agent over all my planes of dissection. The patient was taken out of steep Trendelenburg where I removed the lateral trocars under direct visualization of laparoscope. The infraumbilical trocars left in place to release insufflation and to introduce 10 mL of 0.25% Marcaine in the peritoneal cavity for postoperative pain management. I then removed this trocar as well. The skin reapproximated using 4-0 Monocryl and interrupted subcuticular stitches. Dermabond was applied. Incision bandage was placed over the incisions as well. Roberts catheter was left in place. The patient tolerated the procedure well and sent to recovery area in stable condition. Lap and sponge counts were correct at the end of the procedure. Instrument counts correct as well. Two grams Ancef and 500 mg of Flagyl were given preoperatively for infection prophylaxis. Job ID: [id number] DocumentID: [id number] Dictated Date: 04/09/2023 11:53:11 Pharmacy Benefit Manager Date: 04/09/2023 17:34:00 Dictated By: NESTOR SANTAMARIA DO
[2023-04-10 01:08] VITALS: BP 111/63
[2023-04-10] MEDS: KETOROLAC 30 MG/ML VIAL IVP PRN (01:08)
[2023-04-10] MEDS: HYDROcodone/APAP 7.5 MG/325 MG (LORTAB, LORCET PLUS) TABLET PO PRN ×2 (01:31→10:55)
[2023-04-10] MEDS ORDERED: IBUPROFEN 600 MG (MOTRIN) TAB PO PRN (06:00)
[2023-04-10 09:00] VITALS: BP 111/63
[2023-04-10 09:30] VITALS: BP 117/65
[2023-04-10] MEDS: SIMETHICONE 80 MG (MYLICON) CHEW PO PRN (09:30)
[2023-04-14] MEDS ORDERED: IBUPROFEN 600 MG (MOTRIN) TAB PO PRN (10:00)
--- NOTE | 2023-04-17 08:10 | History & Physical-Surgical ---
HPO-Surgical History of Present Illness Chief Complaint: Dysmenorrhea Diagnosis/Surgical Indication: CPP, Dysmenorrhea, Menorrhagia Procedure: RATLH WITH POSS BSO Date of Surgery: April 09, 2023 Allergies and Home Medications Allergies Coded Allergies: No Known Drug Allergies (Unverified , 04/03/23) Patient Home Medication List Home Medication List Reviewed: Yes Docusate Sodium (Docusate Sodium) 100 Mg Capsule, 100 MG PO BID PRN for CONSTIPATION-1ST LINE Prescribed by: TRENA BRYAN on 04/09/23 0956 Hydrocodone Bit/Acetaminophen (HYDROcodone/APAP 7.5/325 TAB) 1 Ea Tablet, 1-2 EA PO Q6HR PRN for PAIN-MODERATE (5-7) Prescribed by: TRENA BRYAN on 04/09/23 09 Ibuprofen (Ibuprofen) 600 Mg Tablet, 600 MG PO Q6H Prescribed by: TRENA BRYAN on 04/09/23 0956 Iron,Carbonyl/Vit C/Vit B12/FA (Iron 100 Plus Tablet) 100 Mg-250 Mg-25 Mcg-1 Mg Tablet, 1 EACH PO, (Reported) Entered as Reported by: CECILY WILLSON on 11/06/22 1536 Simethicone (Simethicone) 80 Mg Tab.chew, 40 MG PO TID PRN for INDIGESTION 2ND LINE Prescribed by: TRENA BRYAN on 04/09/23 0956 Past Qfvzayw-Ixdgis-Hvkfdm Hx Patient Social History Smoking Status: Never a Smoker Recent Hopitalizations: No Immunizations Up To Date Date of Pneumonia Vaccine: Sep 11, 2011 Date of Influenza Vaccine: Aug 21, 2022 Seasonal Allergies Seasonal Allergies: No Surgeries Yes (BREAST REDUCTION) Tonsillectomy Respiratory No Currently Using CPAP: No Currently Using BIPAP: No Cardiovascular No Neurological Yes Headaches /Migraines Reproductive System Female Reproductive Disorders: Menstrual Problems, Endometriosis Genitourinary No Gastrointestinal No Musculoskeletal No Endocrine History of Endocrine Disorders: No HEENT History of HEENT Disorders: Yes Cancer No Psychosocial History of Psychiatric Problem: Yes Behavioral Health Disorders: Anxiety Integumentary History of Skin or Integumenta: No Blood Transfusions History of Blood Disorders: Yes (ANEMIA) Exam Vital Signs Capillary Refill : Less Than 3 Seconds General Appearance: Alert, Oriented X3 HEENT: Atraumatic Respiratory: Clear to Auscultation Cardiovascular: Regular Rate Abdominal: Normal Bowel Sounds Extremities: No Clubbing Skin: No Rashes Neuro: Normal Gait, Strength at 5/5 X4 Ext Psych/Mental Status: Mental Status NL Assessment/Plan Assessment and Plan D: CPP, Dysmenorrhea, Menorrhagia P: CYNDY w/ poss bso Admission Diagnosis CPP Dysmenorrhea Menorrhagia Admission Status: Observation TRENA BRYAN DO Apr 17, 2023 8:10 am
== END 2023-04-10 12:40 | disposition home or self-care (01) ==
LOC: SDC 08:37 → WS 13:13 → SDC 04-10 12:40
PROVIDERS: ATTEND Obstetrics & Gynecology
DX: N80.03 Adenomyosis of the uterus (principal); G89.29 Other chronic pain; N94.6 Dysmenorrhea, unspecified; N94.10 Unspecified dyspareunia; K21.9 Gastro-esophageal reflux disease without esophagitis; N92.0 Excessive and frequent menstruation with regular cycle; N94.5 Secondary dysmenorrhea; E66.9 Obesity, unspecified; Z68.34 Body mass index [BMI] 34.0-34.9, adult; Z28.310 Unvaccinated for COVID-19
CPT/HCPCS: 36415; 84703; 85025; 86850; 86900; 86901; 87081; 94664

== ENCOUNTER → 2023-07-04 | Outpatient (CLI) | payer OTHER ==
[~2023-07-04] MED LIST changes: +DOCU100C37 PO; +HYDR-34 PO; +IBUP-1773 PO; +SIME80TA16 PO
--- NOTE | 2023-07-04 11:58 | Diagnostic Imaging Report ---
PROCEDURE: US Gallbladder. TECHNIQUE: Multiple real-time grayscale images were obtained over the right upper quadrant in various projections. INDICATION: Epigastric pain. FINDINGS: Liver is normal size at 16 cm. The portal vein is patent and shows normal direction of flow. No liver mass is identified. Gallbladder is without stones or sludge. No wall thickening or biliary ductal dilatation is identified. Pancreas is unremarkable. Aorta is nonaneurysmal. IVC is patent. Right kidney is without calculi or hydronephrosis. There is no ascites. IMPRESSION: Unremarkable gallbladder ultrasound. Dictated by: Dictated on workstation # [id number]
== END ==
LOC: RAD 08:35
PROVIDERS: ATTEND Surgery
DX: R10.13 Epigastric pain (principal)
CPT/HCPCS: 76705

== ENCOUNTER 2023-07-05 07:37 | Outpatient (CLI) | payer SELFPAY ==
[~2023-07-05] VITALS: Ht 157.5 cm; Wt 87.1 kg
== END 2023-07-05 12:37 | disposition home or self-care (01) ==
LOC: PREOP 07:37
PROVIDERS: ATTEND Surgery
DX: Z01.818 Encounter for other preprocedural examination (principal)